=== PATIENT | female | born 1985 | race American Indian/Alaskan Native ===

== ENCOUNTER 2018-06-27 15:14 | Emergency (ER) | payer SELFPAY ==
[2018-06-27 15:29] VITALS: BP 128/82
[2018-06-27 17:59] LABS: HCG Qualitative,Urine Negative (Negative)
[2018-06-27] MEDS ORDERED: NORCO 5/325 PO ONE (18:35)
[2018-06-27] MEDS ORDERED: NORCO 5/325 ONE (18:37)
--- NOTE | 2018-06-27 18:58 | XRay Report ---
FINAL REPORT EXAM: XR HAND 3+V LT HISTORY: pain/swelling r/t fall TECHNIQUE: 4 views of the left hand PRIORS: None. FINDINGS: Nonspecific small subarticular smoothly marginated relatively round lucency is noted in the base of t he thumb proximal phalanx. This may be a degenerative subchondral geode. No radiographically visible acute fracture or dislocation. IMPRESSION: No definite radiographically visible acute skeletal pathology
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
== END 2018-06-27 19:34 | disposition home or self-care (01) ==
LOC: ED 15:14
DX: S56.012A Strain of flexor muscle, fascia and tendon of left thumb at forearm level, initial encounter (principal); F17.200 Nicotine dependence, unspecified, uncomplicated; W22.8XXA Striking against or struck by other objects, initial encounter; Y93.89 Activity, other specified; Y92.091 Bathroom in other non-institutional residence as the place of occurrence of the external cause; Y99.9 Unspecified external cause status
CPT/HCPCS: 81025

== ENCOUNTER 2018-07-03 12:09 | Emergency (ER) | payer SELFPAY ==
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
== END 2018-07-03 13:45 | disposition home or self-care (01) ==
LOC: ED 12:09
CPT/HCPCS: 99282

== ENCOUNTER 2019-03-05 19:54 | Emergency (ER) | payer SELFPAY ==
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
[2019-03-05] MEDS ORDERED: ZOFRAN ODT PO ONE (22:38)
[2019-03-05] MEDS ORDERED: PERCOCET 5/325 PO ONE (22:38)
[2019-03-05] MEDS ORDERED: IBUPROFEN PO ONE (22:38)
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
[2019-03-06 01:54] VITALS: BP 126/70
== END 2019-03-06 00:40 | disposition home or self-care (01) ==
LOC: ED 19:54
DX: S83.92XA Sprain of unspecified site of left knee, initial encounter (principal); S93.402A Sprain of unspecified ligament of left ankle, initial encounter; F17.200 Nicotine dependence, unspecified, uncomplicated; F12.10 Cannabis abuse, uncomplicated; V49.49XA Driver injured in collision with other motor vehicles in traffic accident, initial encounter; Y93.89 Activity, other specified; Y92.89 Other specified places as the place of occurrence of the external cause; Y99.8 Other external cause status
CPT/HCPCS: Q0162